=== PATIENT | female | born 1965 | race Two or more races ===

== ENCOUNTER 2024-03-02 09:16 | Emergency (ER) | payer OTHER ==
[~2024-03-02] VITALS: Ht 162.6 cm; Wt 50.8 kg
[2024-03-02] MEDS ORDERED: LIPITOR20 MG (09:29)
[2024-03-02] MEDS ORDERED: CLONAZEPAM0.5 M1 (10:14)
[2024-03-02] MEDS ORDERED: ZOLOFT100 MG (10:14)
[2024-03-02] MEDS ORDERED: KETOROLAC TROMETHAMINE 30 MG VIAL IM STA (10:35)
[2024-03-02] MEDS ORDERED: ORPHENADRINE CITRATE 30 MG/ML AMPUL IM STA (10:35)
[2024-03-02] MEDS ORDERED: ORPHENADRINE CITRATE 30 MG/ML AMPUL ONE (10:40)
[2024-03-02] MEDS ORDERED: KETOROLAC TROMETHAMINE 30 MG VIAL ONE (10:41)
== END 2024-03-02 10:47 | disposition home or self-care (01) ==
LOC: ER 09:18
DX: G44.209 Tension-type headache, unspecified, not intractable (principal); Z88.2 Allergy status to sulfonamides

== ENCOUNTER 2024-04-07 07:00 | Emergency (ER) | payer OTHER ==
[~2024-04-07] VITALS: Ht 162.6 cm; Wt 49.9 kg
[~2024-04-07 07:00] MED LIST: CLONAZEPAM0.5 M1; LIPITOR20 MG; ZOLOFT100 MG
[2024-04-07] MEDS ORDERED: DEXAMETHASONE SODIUM PHOSPHATE 4 MG/ML VIAL IM ONE (11:15)
== END 2024-04-07 11:32 | disposition home or self-care (01) ==
LOC: ER 07:01
DX: J06.9 Acute upper respiratory infection, unspecified (principal); Z88.2 Allergy status to sulfonamides; Z20.822 Contact with and (suspected) exposure to COVID-19
CPT/HCPCS: 36415; 96372; 99282; J1100

== ENCOUNTER 2024-04-29 17:40 | Emergency (ER) | payer OTHER ==
[~2024-04-29] VITALS: Ht 162.6 cm; Wt 49.9 kg
[2024-04-29] MEDS ORDERED: METHYLPREDNISOLONE SOD SUCC 40 MG VIAL IM ONE (18:15)
[2024-04-29] MEDS ORDERED: CEFTRIAXONE SODIUM 1,000 MG VIAL IM ONE (18:15)
[2024-04-29 19:15] LABS: HEMOGLOBIN 11.3 g/dL (12.0-15.00); MEAN CELL VOLUME 86.1 fL (80.00-100.00); MEAN CORPUSCULAR HEMOGLOBIN 29.4 pg (27.00-32.0); MEAN CORPUSCULAR HGB CONC 34.2 g/dl (32.0-36.0); PLATELET COUNT 253 K/uL (150-450); RED BLOOD COUNT 3.84 M/uL (4.00-6.00); RED CELL DISTRIBUTION WIDTH 14.7 % (11.5-14.5)
[2024-04-29] MEDS ORDERED: PEPCID AC20 MG PO (19:57)
[2024-04-29] MEDS ORDERED: AMOX1TAB5 PO (19:57)
== END 2024-04-29 20:35 | disposition home or self-care (01) ==
LOC: ER 17:42
PROVIDERS: General Practice
DX: R07.0 Pain in throat (principal); Z88.2 Allergy status to sulfonamides; F41.8 Other specified anxiety disorders; M81.8 Other osteoporosis without current pathological fracture; Z20.822 Contact with and (suspected) exposure to COVID-19
CPT/HCPCS: 36415; 96372; 99282; J0696; J3490

== ENCOUNTER 2024-06-18 21:24 | Emergency (ER) | payer OTHER ==
[~2024-06-18] VITALS: Ht 162.6 cm; Wt 50.3 kg
[~2024-06-18 21:24] MED LIST changes: +AMOX1TAB5 PO; +PEPCID AC20 MG PO
[2024-06-18] MEDS ORDERED: KETOROLAC TROMETHAMINE 30 MG VIAL IM STA (22:06)
[2024-06-18] MEDS ORDERED: ORPHENADRINE CITRATE 30 MG/ML AMPUL IM STA (22:07)
[2024-06-19] MEDS ORDERED: ZANAFLEX4 M1 PO (00:23)
[2024-06-19] MEDS ORDERED: DICLOFENAC POTA50 MG PO (00:23)
== END 2024-06-19 00:47 | disposition home or self-care (01) ==
LOC: ER 21:26
DX: S73.102A Unspecified sprain of left hip, initial encounter (principal); Z88.2 Allergy status to sulfonamides; M85.88 Other specified disorders of bone density and structure, other site
CPT/HCPCS: 73503; 96372; 99283; J1885; J2360

== ENCOUNTER 2024-08-25 06:51 | Emergency (ER) | payer OTHER ==
[~2024-08-25] VITALS: Ht 162.6 cm; Wt 49.9 kg
[~2024-08-25 06:51] MED LIST changes: +DICLOFENAC POTA50 MG PO; +ZANAFLEX4 M1 PO
[2024-08-25 09:52] LABS: HEMATOCRIT 38.8 % (36.0-45.00); HEMOGLOBIN 12.8 g/dL (12.0-15.00); MEAN CELL VOLUME 88.4 fL (80.00-100.00); MEAN CORPUSCULAR HEMOGLOBIN 29.2 pg (27.00-32.0); PLATELET COUNT 179 K/uL (150-450); RED BLOOD COUNT 4.39 M/uL (4.00-6.00); RED CELL DISTRIBUTION WIDTH 15.3 % (11.5-14.5)
== END 2024-08-25 10:23 | disposition home or self-care (01) ==
LOC: ER 06:54
DX: J10.1 Influenza due to other identified influenza virus with other respiratory manifestations (principal); Z88.2 Allergy status to sulfonamides; Z20.822 Contact with and (suspected) exposure to COVID-19

== ENCOUNTER → 2024-10-15 | Emergency (ER) | payer OTHER ==
[~2024-10-15] VITALS: Ht 162.6 cm; Wt 47.2 kg
[~2024-10-15] MED LIST changes: +CELEBREX100 MG PO; +DEXAMETHASONE SODIUM PHOSPHATE 4 MG/ML VIAL IM STA; +DEXAMETHASONE SODIUM PHOSPHATE 4 MG/ML VIAL ONE; +KETOROLAC TROMETHAMINE 15 MG VIAL IM STA; +KETOROLAC TROMETHAMINE 30 MG VIAL ONE
[2024-10-15 17:30] VITALS: BP 105/71; O2SAT 98
== END | disposition home or self-care (01) ==
LOC: ER 17:19
DX: M54.50 Low back pain, unspecified (principal); Z88.2 Allergy status to sulfonamides

== ENCOUNTER 2025-02-03 06:44 | Emergency (ER) | payer OTHER ==
[~2025-02-03] VITALS: Ht 162.6 cm; Wt 47.6 kg
[~2025-02-03 06:44] MED LIST changes: -DEXAMETHASONE SODIUM PHOSPHATE 4 MG/ML VIAL IM STA; -DEXAMETHASONE SODIUM PHOSPHATE 4 MG/ML VIAL ONE; -KETOROLAC TROMETHAMINE 15 MG VIAL IM STA; -KETOROLAC TROMETHAMINE 30 MG VIAL ONE
[2025-02-03] MEDS ORDERED: DEXAMETHASONE SO5 ML OP (08:52)
[2025-02-03] MEDS ORDERED: SOD BORATE/BORIC AC/WATER/NACL 120 ML BOTTLE OP ONE (09:15)
== END 2025-02-03 09:20 | disposition home or self-care (01) ==
LOC: ER 06:56
DX: H10.9 Unspecified conjunctivitis (principal); H57.11 Ocular pain, right eye; Z88.2 Allergy status to sulfonamides

== ENCOUNTER → 2025-06-03 | Emergency (ER) | payer OTHER ==
[~2025-06-03] VITALS: Ht 162.6 cm; Wt 48.1 kg
[~2025-06-03] MED LIST changes: +DEXAMETHASONE SO5 ML OP
[2025-06-03 15:56] VITALS: BP 112/66; O2SAT 98
== END | disposition left against medical advice (07) ==
LOC: ER 15:09
DX: F41.8 Other specified anxiety disorders (principal); R06.02 Shortness of breath; R07.89 Other chest pain; F41.0 Panic disorder [episodic paroxysmal anxiety]; Z88.2 Allergy status to sulfonamides